=== PATIENT | male | born 1960 | race Caucasian/White ===

== ENCOUNTER 2022-03-01 07:46 | Day surgery (SDC) | payer OTHER ==
[~2022-03-01] VITALS: Ht 177.8 cm; Wt 70.3 kg
--- NOTE | 2022-03-01 12:25 | NUR ---
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 WHEN ADVISED TO QUIT BEARING WEIGHT WITH HAND, PT STATED, "DO YOU REALLY THINK THAT'S GOING TO HAPPEN." PERSCRIPTION SENT TO [facility], PER DR. GARCIA. [facility] COULD NOT FIND PERSCRIPTION WHEN CONTACTED BY PHONE. PT ADVISED TO CHECK WITH [facility] IN PERSON IMMEDIATELY, THEN CONTACT DR. GARCIA OFFICE IF PERSCRIPTION IS UNAVAILABLE.
== END 2022-03-01 12:10 | disposition home or self-care (01) ==
LOC: ORSCSDS 07:46
PROVIDERS: Orthopaedic Surgery
PROC: 0LB60ZZ Excision of Left Lower Arm and Wrist Tendon, Open Approach (ICD-10-PCS; principal; 2022-03-01 09:45)
DX: M67.432 Ganglion, left wrist (principal); F17.210 Nicotine dependence, cigarettes, uncomplicated
CPT/HCPCS: 88304; J0690; J1100; J1885; J2250; J2370; J2405; J2704; J2795; J3010; J7120